=== PATIENT | female | born 1950 | race Caucasian/White ===

== ENCOUNTER → 2021-01-24 | Outpatient (CLI) | payer MEDICARE, OTHER ==
[~2021-01-24] MED LIST: BIOTIN2500 MCG PO; CALCIUM + D SO1 EACH PO; CENTRUM SILVER1 EAC1 PO; CYMBALTA60 MG PO; DESLORATADINE5 MG PO; DULCOLAX5 MG PO; FUROSEMIDE40 MG PO; GLUCOPHAGE500 MG PO; HYDRALAZINE HCL25 MG PO; HYDROCHLOROTHIA25 MG PO; HYDROCODON-ACE1 EAC6 PO; HYDROXYZINE HCL25 MG PO; ISOSORBIDE MONO30 MG PO; K-TAB ER10 MEQ PO; LEVOFLOXACIN500 MG PO; LEVOTHYROXINE25 MCG PO; LOPRESSOR 50 MG50 MG PO; LOSARTAN-HCTZ1 EAC1 PO; MAGNESIUM CITR296 ML PO; MAGNESIUM250 M1 PO; MONTELUKAST SOD10 MG PO; PROAIR HFA8.5 GM INH; PROTONIX 40 MG40 M1 PO; RANOLAZINE ER1000 MG PO; SINGULAIR10 MG PO; VITAMIN B-1250 MCG PO; ZANAFLEX 4 MG TA4 MG PO
[2021-01-24 15:53] LABS: HEMOGLOBIN 12.4 gm/dl (12.3-15.3); RED BLOOD COUNT 3.95 M/UL (4.00-5.10); WHITE BLOOD COUNT 8.5 K/UL (4.5-11.0)
[2021-01-24 16:10] LABS: BUN/CREATININE RATIO 22 (0-10)
== END ==
LOC: LAB 15:10
PROVIDERS: Internal Medicine Cardiovascular Disease
DX: I20.9 Angina pectoris, unspecified (principal); R94.39 Abnormal result of other cardiovascular function study; Z20.822 Contact with and (suspected) exposure to COVID-19
CPT/HCPCS: 36415; 71046; 80048; 85025; U0003

== ENCOUNTER → 2021-01-28 | Outpatient (CLI) | payer MEDICARE, OTHER ==
[~2021-01-28] VITALS: Ht 154.9 cm; Wt 116.6 kg
== END ==
LOC: CATH 08:06
DX: I20.9 Angina pectoris, unspecified (principal); I11.0 Hypertensive heart disease with heart failure; I50.32 Chronic diastolic (congestive) heart failure; I49.5 Sick sinus syndrome; I45.81 Long QT syndrome; I47.2 Ventricular tachycardia; E78.5 Hyperlipidemia, unspecified; K22.70 Barrett's esophagus without dysplasia; F41.9 Anxiety disorder, unspecified; K21.9 Gastro-esophageal reflux disease without esophagitis; E11.9 Type 2 diabetes mellitus without complications; E03.9 Hypothyroidism, unspecified; Z95.0 Presence of cardiac pacemaker; Z79.84 Long term (current) use of oral hypoglycemic drugs; Z79.899 Other long term (current) drug therapy
CPT/HCPCS: 82962; 99152; 99153; C1769; C1894; J1644; J2250; J7030; Q9967

== ENCOUNTER → 2021-02-11 | Outpatient (CLI) | payer MEDICARE, OTHER ==
[2021-02-11 10:03] LABS: HEMOGLOBIN 12.1 gm/dl (12.3-15.3); RED BLOOD COUNT 3.98 M/UL (4.00-5.10); WHITE BLOOD COUNT 8.5 K/UL (4.5-11.0)
[2021-02-11 10:20] LABS: BUN/CREATININE RATIO 20 (0-10)
== END ==
LOC: CATH 09:16
PROVIDERS: Internal Medicine Cardiovascular Disease
DX: I49.5 Sick sinus syndrome (principal); I20.9 Angina pectoris, unspecified; I47.2 Ventricular tachycardia; E78.5 Hyperlipidemia, unspecified; I45.81 Long QT syndrome; I11.0 Hypertensive heart disease with heart failure; I50.32 Chronic diastolic (congestive) heart failure; C18.9 Malignant neoplasm of colon, unspecified; M51.35 Other intervertebral disc degeneration, thoracolumbar region; K21.9 Gastro-esophageal reflux disease without esophagitis; E03.9 Hypothyroidism, unspecified; E66.9 Obesity, unspecified; M17.10 Unilateral primary osteoarthritis, unspecified knee; E11.9 Type 2 diabetes mellitus without complications; Z20.822 Contact with and (suspected) exposure to COVID-19; Z68.42 Body mass index [BMI] 45.0-49.9, adult; Z79.890 Hormone replacement therapy; Z95.0 Presence of cardiac pacemaker
CPT/HCPCS: 33213; 80048; 82962; 85025; 99152; 99153; C1785; J1200; J2250; J3010; J3370; J7050; U0002